=== PATIENT | male | born 1990 | race African-American/Black ===

== ENCOUNTER → 2016-06-17 | Outpatient (CLI) | payer OTHER ==
--- NOTE | 2016-06-20 16:05 | ECHOF ---
Referral Reason:R01.1 cardiac murmru MEASUREMENTS -------- HEIGHT: 185.4 cm WEIGHT: 127.0 kg BP: IVSd: 1.7 cm (0.6 - 1.1) LVIDd: 4.1 cm (3.9 - 5.3) LVPWd: 1.5 cm (0.6 - 1.1) IVSs: 1.9 cm LVIDs: 3.0 cm LVPWs: 2.2 cm Ao Diam: 2.9 cm (2.0 - 3.7) AV Cusp: 2.3 cm (1.5 - 2.6) LA Diam: 3.6 cm (2.7 - 3.8) MV EXCURSION: 7.809 mm (> 18.000) MV EF SLOPE: 151 mm/s (70 - 150) EPSS: 0.7 cm MV E Benigno: 1.06 m/s MV DecT: 262 ms MV A Benigno: 0.82 m/s MV E/A Ratio: 1.29 RAP: 5.00 mmHg RVSP: 18.23 mmHg FINDINGS -------- Sinus rhythm. This was a technically good study. There is moderate concentric left ventricular hypertrophy. Overall left ventricular systolic function is normal with, an EF between 55 - 60 %. The right ventricle is normal in size and function. The left atrium is normal in size. The right atrium is normal in size. The aortic valve is trileaflet, and appears structurally normal. No aortic stenosis or regurgitation. The mitral valve leaflets are mildly thickened. Mild mitral regurgitation is present. Mild tricuspid regurgitation present. The right ventricular systolic pressure, as measured by Doppler, is 18.23mmHg. Pulmonic valve appears structurally normal. The pericardium is normal. CONCLUSIONS -------- 1. Sinus rhythm. 2. Mild mitral regurgitation is present. 3. Mild tricuspid regurgitation present. 4. The right ventricular systolic pressure, as measured by Doppler, is 18.23mmHg. 5. Pulmonic valve appears structurally normal. 6. The pericardium is normal. 7. This was a technically good study. 8. There is moderate concentric left ventricular hypertrophy. 9. Overall left ventricular systolic function is normal with, an EF between 55 - 60 %. 10. The right ventricle is normal in size and function. 11. The left atrium is normal in size. 12. The right atrium is normal in size. 13. The aortic valve is trileaflet, and appears structurally normal. No aortic stenosis or regurgitation. 14. The mitral valve leaflets are mildly thickened. [employer] INS[employer]OR: Carey Dickey RDCS
== END | disposition home or self-care (01) ==
LOC: RADECHMAIN 10:54
PROVIDERS: ATTEND Family Medicine
DX: R01.1 Cardiac murmur, unspecified (principal)
CPT/HCPCS: 93306

== ENCOUNTER 2018-06-09 01:27 | Emergency (ER) | payer OTHER ==
[2018-06-09 01:32] VITALS: BP 165/91; PULSE 83; RESP 16; TEMP 98.3
[2018-06-09] MEDS ORDERED: IBUPROFEN 600 MG STARTER PACK 4 TAB BTL PO STA (01:47)
[2018-06-09] MEDS ORDERED: HYDROcodone/APAP 5-325MG 1 EACH TAB PO STA (01:47)
[2018-06-09] MEDS ORDERED: AMOXIC-POT CLAV 875MG STARTER 2 EACH TABLET PO STA (01:47)
--- NOTE | 2018-06-09 01:50 | ED ---
ENT HPI - General Chief complaint: Dental/Oral Stated complaint: Dental Pain Time Seen by Provider: 06/09/18 01:34 Source: patient Mode of arrival: ambulatory Limitations: no limitations - History of Present Illness Initial comments: This patient is 27-year-old man presenting to be evaluate for mandibular tooth pain. Patient indicates that pain is preventing him from resting. No difficulty with swallowing or breathing. MD complaint: tooth pain -: days(s) Location: tooth # (17) Severity: severe Quality: aching Consistency: constant Improves with: none Worsens with: none Associated Symptoms: toothache - Related Data Previous Rx's Medication Instructions Recorded Amoxicillin/Potassium Clav 1 tab PO Q12HR #14 tab 06/09/18 [Augmentin 875-125 Tablet] Hydrocodone/Acetaminophen [[place] 1 each PO Q6HR PRN #20 tab 06/09/18 5-325] Allergies Allergy/AdvReac Type Severity Reaction Status Date / Time No Known Allergies Allergy Verified 06/09/18 01:31 Review of Systems ROS Statement: Those systems with pertinent positive or pertinent negative responses have been documented in the HPI. ROS Other: All systems not noted in ROS Statement are negative. Constitutional: Denies: fever, chills ENT: Denies: ear pain, throat pain Respiratory: Denies: cough, dyspnea Neurological: Denies: headache, weakness, numbness Past Medical History Past Medical History: No Reported History History of Any Multi-Drug Resistant Organisms: None Reported Past Surgical History: No Surgical Hx Reported Past Psychological History: No Psychological Hx Reported Smoking Status: Current every day smoker Past Alcohol Use History: Occasional Past Drug Use History: Marijuana General Exam Limitations: no limitations General appearance: alert, in no apparent distress Head exam: Present: atraumatic, normocephalic Eye exam: Present: normal appearance, PERRL, EOMI. Absent: scleral icterus, conjunctival injection ENT exam: Present: mucous membranes moist, TM's normal bilaterally, other (Patient has impacted wisdom tooth left mandibular.) Neck exam: Present: normal inspection, full ROM, other. Absent: tenderness, meningismus, lymphadenopathy Respiratory exam: Present: normal lung sounds bilaterally Skin exam: Present: warm, dry, intact, normal color. Absent: rash Course Vital Signs 06/09/18 01:29 Temperature 98.3 F Pulse Rate 83 Respiratory 16 Rate Blood Pressure 165/91 O2 Sat by Pulse 99 Oximetry Disposition Clinical Impression: Impacted molar Disposition: HOME SELF-CARE Condition: Good Instructions (If sedation given, give patient instructions): Toothache (ED) Prescriptions: Amoxicillin/Potassium Clav [Augmentin 875-125 Tablet] 1 tab PO Q12HR #14 tab Hydrocodone/Acetaminophen [[place] 5-325] 1 each PO Q6HR PRN #20 tab PRN Reason: Pain Is patient prescribed a controlled substance at d/c from ED?: Yes When asked, does pt state using other controlled substances?: No If prescribed controlled substance>3 days was MAPS reviewed?: Prescribed <3 Days If opioid is for acute pain is fill amount 7 days or less?: Yes If Rx opioid, was Start Talking consent form obtained?: Yes Referrals: Holden Guy MD [Primary Care Provider] - 1-2 days
== END 2018-06-09 02:09 | disposition home or self-care (01) ==
LOC: EC 01:27
DX: K01.1 Impacted teeth (principal); F17.200 Nicotine dependence, unspecified, uncomplicated
CPT/HCPCS: 99282

== ENCOUNTER → 2019-06-18 | Outpatient (CLI) | payer OTHER ==
--- NOTE | 2019-06-18 14:07 | MR ---
EXAMINATION TYPE: MR ankle LT wo con DATE OF EXAM: 06/18/2019 COMPARISON: None. HISTORY: Left ankle and foot pain. Primary osteoarthritis. History of morbid obesity. History of talo navicular arthritis or water. Bilateral ankle and foot pain for years per patient, recent steroid inj ection 2 weeks ago. Standard multiplanar, multisequence MRI departmental protocol Multiplanar, multisequence images of the left ankle were acquired. FINDINGS: There is small to tiny superior and small to moderate size inferior calcaneal spurring. Dis peewee Achilles tendon intact. Visualized plantar fascia within normal limits. The peroneal brevis and longus tendons are felt intact with some surrounding fluid seen posterior to the lateral malleolus axial image 25 for reference. The flexor tendons along posterior medial aspect of the ankle are intact. Some cystic fluid surroundi ng FHL near the posterior aspect subtalar joint axial image 15 noted. Extensor tendons anteriorly are intact. The anterior tibiofibular and anterior talofibular ligaments are felt intact. Medial deltoid ligament is intact. Ankle mortise symmetry is preserved. There is diffuse T2 signal throughout the talus most prominent a nteriorly. There is more prominent edema and subchondral cystic change near level of the subtalar gulshan nt with some additional reactive changes noted in the anterior superior calcaneus. Mild edema also se en in the central aspect of the calcaneus near subtalar joint. (For reference sagittal image 7 and ax ial image 11) Moderate narrowing with mild to moderate spurring at the calcaneal cuboid joint. There is severe narr owing near arthrodesis at the distal cuboid articulation with the lateral cuneiform with significant osseous edema at the joint space. There is moderate narrowing especially along the inferior aspect of the talonavicular joint with larg e dorsal spurring. Lis Franc joints fairly well maintained. IMPRESSION: 1. Significant hindfoot and midfoot degenerative changes as detailed above greatest at the subtalar j oint, talonavicular joint and the cuboid articulation with the lateral cuneiform. 2. Extensive hindfoot and proximal midfoot bone marrow edema may be products of altered walking mecha nics related to patient's history of recent steroid injection and thus not perceiving pain when walki ng currently, correlate clinically. 3. No ligamentous or tendon tear identified. Areas of tenosynovitis present.
== END | disposition home or self-care (01) ==
LOC: RADMRIMAIN 10:31
PROVIDERS: ATTEND Orthopaedic Surgery
DX: M19.072 Primary osteoarthritis, left ankle and foot (principal); M65.872 Other synovitis and tenosynovitis, left ankle and foot; I10 Essential (primary) hypertension; M19.071 Primary osteoarthritis, right ankle and foot

== ENCOUNTER 2020-02-13 20:11 | Emergency (ER) | payer OTHER ==
[2020-02-13 20:16] VITALS: RESP 18
[2020-02-13] MEDS ORDERED: FLUORESCEIN STRIPS 1 MG STRIP LEFT EYE ONE (20:42)
[2020-02-13] MEDS ORDERED: PROPARACAINE 0.5% OPHTH DROPS 15 ML BTL LEFT EYE STA (20:42)
[2020-02-13] MEDS ORDERED: TOBRAMYCIN 0.3% OPHTH DROPS 5 ML BTL LEFT EYE STA (20:57)
--- NOTE | 2020-02-13 21:00 | ED ---
General Adult HPI - General Chief complaint: ENT Stated complaint: FB in left ear Time Seen by Provider: 02/13/20 20:24 Source: patient Mode of arrival: ambulatory Limitations: no limitations - History of Present Illness Initial comments: 29-year-old male presents to emergency department this evening with complaints of foreign body in his right ear, left eye irritation, and bilateral forearm discomfort. Patient states the cotton portion of a Q-tip remains in his right ear and has been there for approximately 2 hours. Denies any attempts to remove this prior to arrival. Patient does report diminished hearing in the right ear. Also complains of irritation in his left eye for the past 2 days. Patient states a small rosebush came in contact with his open left eye yesterday afternoon. Reports blurry vision today; denies drainage from the eye. Lastly, patient complains of bilateral forearm discomfort in the form of skin irritation that he attributes to contact with boxes of mganolia material. Denies any attempt to treat discomfort. No redness, itching, or open areas. Patient denies any recent rash, fever, chills, cough, shortness of breath, chest pain, abdominal pain, nausea, vomiting, diarrhea, constipation, back pain, numbness, tingling, dizziness, weakness, hematuria, dysuria, urinary urgency, urinary frequency, headache, or any other complaints. - Related Data Previous Rx's Medication Instructions Recorded Amoxicillin/Potassium Clav 1 tab PO Q12HR #14 tab 06/09/18 [Augmentin 875-125 Tablet] Hydrocodone/Acetaminophen [[place] 1 each PO Q6HR PRN #20 tab 06/09/18 5-325] Allergies Allergy/AdvReac Type Severity Reaction Status Date / Time No Known Allergies Allergy Verified 02/13/20 20:16 Review of Systems ROS Statement: Those systems with pertinent positive or pertinent negative responses have been documented in the HPI. ROS Other: All systems not noted in ROS Statement are negative. Past Medical History Past Medical History: No Reported History History of Any Multi-Drug Resistant Organisms: None Reported Past Surgical History: No Surgical Hx Reported Past Psychological History: No Psychological Hx Reported Smoking Status: Current every day smoker Past Alcohol Use History: Occasional Past Drug Use History: Marijuana General Exam Limitations: no limitations (Well-developed, well-nourished male in no acute distress. Temperature 98.1F, pulse 87, respirations 18, blood pressure 152/80, Pulse Ox 100% on room air.) General appearance: alert, in no apparent distress Eye exam: Present: normal appearance, PERRL, EOMI. Absent: conjunctival injection, periorbital swelling Expanded Eyelids: Normal Inspection: Bilateral Pupils: Regular, Round: Bilateral Sclera/Conjunctival: Normal Inspection: Bilateral Anterior chamber: Normal Inspection: Bilateral Visual acuity (R) = 20/: 70 Visual acuity (L) = 20/: 70 With correction: No Expanded TM/Canal exam: Foreign Body: Right TM (Cotton portion of a Q-tip removed from right external ear canal) Respiratory exam: Present: normal lung sounds bilaterally. Absent: respiratory distress, wheezes, rales, rhonchi, stridor Cardiovascular Exam: Present: regular rate, normal rhythm, normal heart sounds. Absent: systolic murmur, diastolic murmur, rubs, gallop, clicks Right Forearm Wrist exam: Present: normal inspection, full ROM, tenderness (Diffuse nonspecific tenderness anterior forearm). Absent: swelling, abrasion, ecchymosis, erythema Vascular: Present: normal capillary refill, radial pulse. Absent: vascular compromise Left Forearm Wrist exam: Present: normal inspection, full ROM, tenderness (Diffuse nonspecific tenderness anterior forearm). Absent: swelling, abrasion, ecchymosis, erythema Vascular: Present: normal capillary refill, radial pulse. Absent: vascular compromise Neurological exam: Present: alert, oriented X3, CN II-XII intact Psychiatric exam: Present: normal affect, normal mood Skin exam: Present: warm, dry, intact, normal color. Absent: rash Course Vital Signs 02/13/20 02/13/20 20:12 21:10 Temperature 98.1 F 98.2 F Pulse Rate 87 81 Respiratory 18 18 Rate Blood Pressure 152/88 150/82 O2 Sat by Pulse 100 100 Oximetry Procedures - Foreign Body Removal Ear Location: ear canal (R) Foreign Body Suspected: other (cotton portion of a Q-tip) Foreign Body Removed: yes Foreign Body Removal Technique: forceps Tympanic Membrane Intact: Yes Patient Tolerated Procedure: well Complications: none Medical Decision Making - Medical Decision Making 29-year-old male presents to emergency department this evening for evaluation. States he has cotton the portion of a Q-tip stuck in the right ear which was easily retrieved. After removal of foreign body, tympanic membrane visualized and is intact and pearly blackburn in appearance. Patient states relief of discomfort and improvement in hearing immediately. Additionally, he also complains of left eye discomfort related to injury from a branch of a rosebush yesterday. Complained of irritating sensation in his eye; no scleral injection or focal area of uptake with fluorescein eye exam. Does report blurry vision since injury. Visual acuity 20/70 OD, OS, OU without any correction therefore patient encouraged to follow-up with an eye doctor. Lastly, patient complains of bilateral forearm skin irritation and discomfort he attributes to carrying large boxes of magnolia material. No areas of abrasion or erythema noted. Discussed wearing a long sleeve shirt to work in order to better protect forearms. Patient encouraged to follow-up with a family doctor for recheck as needed. Return parameters were discussed. Patient verbalizes understanding and agrees with this plan. Disposition Clinical Impression: Foreign body in right ear, Left eye injury, Contusion of left forearm, Contusion of right forearm Disposition: HOME SELF-CARE Condition: Good Instructions (If sedation given, give patient instructions): Ear Foreign Body (ED), Contusion in Adults (ED), Eye Pain (ED) Additional Instructions: Follow up with the primary care physician for recheck in 1-2 days. Take ibuprofen for pain control. Use eye drop to the left eye, one drop every 4 hours while awake. Follow-up with housing coordinator if her symptoms are not improved over the next one to days. Return to emergency department immediately for any new, worsening, or concerning symptoms. Is patient prescribed a controlled substance at d/c from ED?: No Referrals: Holden Guy MD [Primary Care Provider] - 1-2 days Gentry Anguiano MD [STAFF PHYSICIAN] - 1-2 days Time of Disposition: 20:59
[2020-02-13 21:11] VITALS: BP 150/82; PULSE 81; TEMP 98.2
== END 2020-02-13 21:10 | disposition home or self-care (01) ==
LOC: EC 20:11
DX: T16.1XXA Foreign body in right ear, initial encounter (principal); S05.92XA Unspecified injury of left eye and orbit, initial encounter; S50.12XA Contusion of left forearm, initial encounter; S50.11XA Contusion of right forearm, initial encounter; F17.200 Nicotine dependence, unspecified, uncomplicated; W22.8XXA Striking against or struck by other objects, initial encounter
CPT/HCPCS: 69200; 99282